=== PATIENT | female | born 1960 | race Two or more races ===

== ENCOUNTER 2016-06-28 19:27 | Emergency (ER) | payer SELFPAY ==
[~2016-06-28] VITALS: Ht 157.5 cm; Wt 68.0 kg
[~2016-06-28 19:27] MED LIST: ADDERAL20 MG ORAL; AMBIEN10 MG ORAL; ARMOUR THYROID30 MG ORAL; CYTOMEL5 MCG ORAL; LAMICTAL XR200 MG ORAL; LAMICTAL100 MG ORAL; LAMICTAL25 MG ORAL; NORCO 5-325 TA1 EACH PO; PERCOCET 5-3251 EACH ORAL; PERCOCET1 TAB ORAL; SYNTHROID125 MCG ORAL; SYNTHROID25 MCG ORAL; ZOLOFT100 MG ORAL
[2016-06-28 20:26] VITALS: BP 135/61
[2016-06-28] MEDS ORDERED: SYNTHROID175 MCG ORAL (21:35)
[2016-06-28] MEDS ORDERED: CYTOMEL5 MCG ORAL (21:35)
[2016-06-28 21:37] VITALS: BP 135/61
--- NOTE | 2016-06-29 13:06 | Diagnostic Imaging Report ---
Indications: hip pain Findings: Two views of the right hip were obtained. There is a right hip prosthesis demonstrated. There is no fracture or malalignment identified. There is a focus of soft tissue calcification that is fairly large lateral to the right hip. This may be desiccation of the bursa possibly hematoma that is calcified. Also note is made of the angle of the acetabular cup which appears highly abducted i.e. the abduction/inclination angle appears greater than normal. This is associated with a greater risk of dislocation and wearing of the cup. Impression: No acute fracture identified. Unusual soft tissue calcification of the structure lateral to the right hip which may be an enlarged or so with calcification or possibly hematoma. Right total hip arthroplasty with increased acetabular cup inclination/abduction. Patient is at increased risk for hip dislocation.
--- NOTE | 2016-06-30 11:37 | Emergency Room Report ---
History of Present Illness General Chief Complaint: Lower Back Pain or Injury Source: Patient Present Illness HPI The pt is a 56 yo F with a Hx of bilateral hip replacement presenting for R hip pain after falling today. The pt states that she fell down in the shower onto the R hip. The pain is described as a 6/10 dull ache and does not radiate from the R hip. Pain worse with touch. Pt denies numbness/tingling. The pt states that she usually ambulates in the house with a walker but now has to use a wheelchair due to the pain. The pt denies any other symptoms. Allergies: Coded Allergies: No Known Allergies (Unverified , 07/06/13) Patient History Past Medical History: see triage record Past Surgical History: other - bilat hip replacement Pertinent Family History: none Reviewed Nursing Documentation: PMH: Agreed, PSxH: Agreed Nursing Documentation-PMH Hx Cardiac Problems: No - THYROID Review of Systems All Other Systems: negative except mentioned in HPI Physical Exam Vital Signs Date Time Temp Pulse Resp B/P Pulse Ox O2 Delivery O2 Flow Rate FiO2 06/28/16 19:57 98.1 79 16 135/61 99 Room Air Sp02 EP Interpretation: reviewed, normal General Appearance: no apparent distress, alert, GCS 15, non-toxic Head: normocephalic, atraumatic Eyes: bilateral eye PERRL, bilateral eye normal inspection Musculoskeletal: no calf tenderness, decreased range of motion - bilat hip, tender - TTP over lateral R hip Neurologic: alert, oriented x3, responsive, motor strength/tone normal, sensory intact, speech normal Psychiatric: judgement/insight normal, memory normal, mood/affect normal, no suicidal/homicidal ideation Skin: normal color, no rash, warm/dry, well hydrated Lymphatic: no adenopathy Medical Decision Making PA Attestation Dr. Britt is my supervising physician. Patient management was discussed with my supervising physicianis my supervising physician. Patient management was discussed with my supervising physician Diagnostic Impression: Primary Impression: Medication refill Additional Impression: Contusion, hip ER Course The pt is a 56 yo F with a Hx of bilateral hip replacement presenting for R hip pain after falling today DDx: dislocation, fracture, contusion, strain PE: vitals WNL. NAD Pt is resting comfortably in wheelchair Limited AROM of R hip. No leg length discrepancy. Full AROM of knee and ankle SILT TTP over lateral R hip Pt declines pain medications in the ER Xray shows no fracture or dislocation. Hardware in place. There is STS noted. Pt will be DC'ed home with refill of medication for hypothyroidism and will FU with PMD. Pt is under pain management. ER precautions given. Other X-Ray Diagnostic Results Other X-Ray Diagnostic Results : X-Ray Ordered: R hip Date: Jun 30, 2016 EP Interpretation: Yes Findings: no fractures, no dislocation, other - + STS PA Scribe Text I'm acting as scribe for my supervising physician. My supervising physician's interpretation of the R hip xrays are there are no fractures, dislocations. There is soft tissue swelling noted. Last Vital Signs Date Time Temp Pulse Resp B/P Pulse Ox O2 Delivery O2 Flow Rate FiO2 06/28/16 21:37 98.1 16 135/61 99 Room Air 06/28/16 20:26 79 Status: improved Disposition: HOME, SELF-CARE Condition: Stable Scripts Liothyronine Sodium* (CYTOMEL*) 5 Mcg Tablet 5 MCG ORAL DAILY, #30 TAB Prov: PETER WALKER 06/28/16 Levothyroxine Sodium (SYNTHROID) 175 Mcg Tablet 175 MCG ORAL DAILY, #30 TAB Take in the morning on an empty stomach, at least 30 minutes before food. Prov: PETER WALKER 06/28/16 Referrals: NOT CHOSEN IPA/MD,REFERRING (PCP) Patient Instructions: Medicine Refill at the Emergency Department, Contusion Additional Instructions: I discussed my findings with the patient. All questions and concerns have been answered. Treatment and medication compliance have been addressed. I advised the patient that they need to follow up with PMD in 3-5 days. Return to ED if symptoms worsen, new symptoms arise, or if needed for any reason. Patient verbalized understanding of discharge instructions. PETER WALKER Jun 30, 2016 11:37
== END 2016-06-28 21:50 | disposition home or self-care (01) ==
LOC: EMR 21:46
DX: Z76.0 Encounter for issue of repeat prescription (principal); S70.01XA Contusion of right hip, initial encounter; Z96.643 Presence of artificial hip joint, bilateral; W18.2XXA Fall in (into) shower or empty bathtub, initial encounter; Y93.9 Activity, unspecified; Y92.9 Unspecified place or not applicable
CPT/HCPCS: 99284

== ENCOUNTER 2019-10-28 21:18 | Emergency (ER) | payer MEDICAID, OTHER ==
[~2019-10-28] VITALS: Ht 160 cm; Wt 79.4 kg
[~2019-10-28 21:18] MED LIST changes: +SYNTHROID175 MCG ORAL
--- NOTE | 2019-10-28 21:31 | NUR ---
ED Nurse Note: pt presents to ED c/o dysuria, burning, and urgency x 1 day. pt denies any blood but does report frequency, urgency and little ouput when she uses the restroom. pt denies any N/V at this time, no other complaints
[2019-10-28 21:33] VITALS: BP 133/81
--- NOTE | 2019-10-28 21:37 | NUR ---
ED Nurse Note: pt asked for straight cath, 2 cc of pink tinged urine obtained. ERMD aware. entire in and out specimen bag sent to lab for urine culture
--- NOTE | 2019-10-28 21:48 | Emergency Room Report ---
History of Present Illness General Chief Complaint: Female Urogenital Problems Source: Patient Present Illness HPI Patient with several days of dysuria. She complains of stinging and burning when she urinates. She can only pass small amounts of urine at this time. She denies fevers or chills. She denies back pain. She has had multiple urinary tract infections in the past. In addition she has had urinary incontinence. She feels there is an anatomic reason for her to develop urinary tract infections. She denies nausea, vomiting or diarrhea. She is complaining about a facial rash and is asking for Kenalog cream. No sore throat, chest pain, palpitations, abdominal pain, shortness of breath, joint pain, depression, anxiety, visual changes, dizziness, headache. 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: No Patient History Past Medical History: see triage record Social History: Denies: smoking, alcohol use, drug use Social History Narrative The patient is visiting from [place] Reviewed Nursing Documentation: PMH: Agreed; PSxH: Agreed Nursing Documentation-PMH Hx Cardiac Problems: No - THYROID Review of Systems All Other Systems: negative except mentioned in HPI Physical Exam Vital Signs Date Time Temp Pulse Resp B/P (MAP) Pulse Ox O2 Delivery O2 Flow Rate FiO2 10/28/19 21:24 97.5 70 16 133/81 (98) 97 Room Air Sp02 EP Interpretation: reviewed, normal General Appearance: well appearing, no apparent distress, GCS 15, non-toxic Head: normocephalic Eyes: bilateral eye normal inspection, bilateral eye PERRL, bilateral eye EOMI ENT: moist mucus membranes Neck: full range of motion, supple Respiratory: normal inspection Cardiovascular #1: regular rate, rhythm Cardiovascular #2: 2+ radial (R) Gastrointestinal: normal inspection Genitourinary: no CVA tenderness Musculoskeletal: gait/station normal Neurologic: alert, grossly normal Psychiatric: mood/affect normal Skin: warm/dry, other - Hyperpigmented rash perioral Medical Decision Making Diagnostic Impression: Primary Impression: UTI (urinary tract infection) Qualified Codes: N30.00 - Acute cystitis without hematuria Additional Impression: Facial rash ER Course Patient presents with dysuria without systemic signs or symptoms. Differential includes urinary tract infection, pyelonephritis amongst others. The lack of fever or back pain suggest more cystitis. She has had multiple urinary tract infections in the past. Urinalysis and urine culture are indicated. The patient will be given a dose of Pyridium as well as started on Macrobid. Urinalysis reveals too numerous to count red cells and too numerous to count white cells. There is no gross hematuria. Patient with improved symptoms with Pyridium. She initially could only produce a small amount of urine which was sent for culture. Advised the patient we would be contacting her if the bacteria which grow are resistant to Macrobid. In addition she was advised not to use Kenalog cream on her face. She said she would follow-up with her own doctor regarding this problem. Patient stable for outpatient observation and treatment. Laboratory Tests Test 10/28/19 22:20 Urine Color Yellow Urine Appearance Cloudy Urine pH 6 (4.5-8.0) Urine Specific [place] 1.025 (1.005-1.035) Urine Protein 3+ (NEGATIVE) H Urine Glucose (UA) Negative (NEGATIVE) Urine Ketones 1+ (NEGATIVE) H Urine Blood 5+ (NEGATIVE) H Urine Nitrite Positive (NEGATIVE) H Urine Bilirubin 1+ (NEGATIVE) H Urine Ictotest Positive (NEGATIVE) Urine Urobilinogen 1 MG/DL (0.0-1.0) H Urine Leukocyte Esterase 3+ (NEGATIVE) H Urine RBC Tntc /HPF (0 - 2) H Urine WBC Tntc /HPF (0 - 2) H Urine Squamous Epithelial Cells Moderate /LPF (NONE/OCC) H Urine Bacteria Moderate /HPF (NONE) H Last Vital Signs Date Time Temp Pulse Resp B/P (MAP) Pulse Ox O2 Delivery O2 Flow Rate FiO2 10/28/19 21:33 87 16 133/81 97 Room Air 10/28/19 21:24 97.5 Status: improved Disposition: HOME, SELF-CARE Condition: Improved Scripts Nitrofurantoin Monohyd/M-Cryst* (MACROBID 100 MG*) 100 Mg Capsule 100 MG ORAL EVERY 12 HOURS, #14 CAP Prov: Reece Ojeda MD 10/28/19 Phenazopyridine Hcl* (PYRIDIUM*) 200 Mg Tablet 200 MG ORAL THREE TIMES A DAY, #9 TAB 0 Refills Prov: Reece Ojeda MD 10/28/19 Reece Ojeda MD Oct 28, 2019 21:48
[2019-10-28] MEDS ORDERED: NITROFURANTOIN100 M2 ORAL (21:56)
[2019-10-28] MEDS ORDERED: PHENAZOPYRIDIN200 MG ORAL (21:56)
[2019-10-28] MEDS ORDERED: Acetaminophen 500mg (ES) tab ORAL ONE (22:00)
[2019-10-28] MEDS ORDERED: Phenazopyridine 200mg tab ORAL ONE (22:00)
[2019-10-28 22:27] VITALS: BP 133/81
--- NOTE | 2019-10-28 22:27 | NUR ---
ER DISCHARGE NOTE: Patient is cleared to be discharged per ERMD, pt is aox4, on room air, with stable vital signs. pt was given dc and prescription instructions, pt was able to verbalize understanding, pt id band removed without complications. pt is able to ambulate with steady gait. pt took all belongings.
[2019-10-28 22:39] LABS: APPEARANCE,URINE CLOUDY; BILIRUBIN, URINE 1+ (NEGATIVE); COLOR,URINE YELLOW; GLUCOSE, URINE (UA) NEGATIVE (NEGATIVE); KETONES,URINE 1+ (NEGATIVE); LEUKOCYTE ESTERASE ,URINE 3+ (NEGATIVE); NITRITE,URINE POSITIVE (NEGATIVE); PH,URINE 6 (4.5-8.0); PROTEIN,URINE 3+ (NEGATIVE); UROBILINOGEN,URINE 1 MG/DL (0.0-1.0)
[2019-11-01] MEDS ORDERED: CEPHALEXIN500 MG ORAL (09:51)
== END 2019-10-28 22:27 | disposition home or self-care (01) ==
LOC: EMR 21:44
DX: N30.00 Acute cystitis without hematuria (principal); R21 Rash and other nonspecific skin eruption
CPT/HCPCS: 81003; 87086; 87181; 99283

== ENCOUNTER 2019-11-15 16:52 | Emergency (ER) | payer MEDICAID ==
[~2019-11-15] VITALS: Ht 160 cm; Wt 83.9 kg
[~2019-11-15 16:52] MED LIST changes: +CEPHALEXIN500 MG ORAL; +NITROFURANTOIN100 M2 ORAL; +PHENAZOPYRIDIN200 MG ORAL
[2019-11-15 17:00] VITALS: BP 128/85
--- NOTE | 2019-11-15 17:10 | NUR ---
ED Nurse Note: Pt says that she has to leave soon. ED PA aware. Per PA, collect and urine and send to lab, but discharge patient immediately after with prescriptions.
--- NOTE | 2019-11-15 17:12 | Emergency Room Report ---
History of Present Illness General Chief Complaint: Female Urogenital Problems Source: Patient Present Illness HPI 59-year-old female with history of recurrent UTI who was just here a week ago for urinary tract infection here complaining of continuation of her UTI symptoms. Patient was first given Macrobid however after culture and sensitivity came back Keflex was called into the pharmacy. Patient also received phone call from the physician that the Keflex was called in however patient never picked it up as she forgot. After being triaged patient is in such a hurry as she needs to get home before sunset at the [facility] and wants to give urine and leave. After I talked to the patient patient tells me that she never picked up the Keflex from the pharmacy as she forgot and she feels stupid that she did not pick it up. I reprinted the prescription for her however urine was sent out and patient departed the ED and did not wait for results. Patient denies any fever and chills, diffuse abdominal pain, nausea vomiting. 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: No Patient History Past Medical History: see triage record Past Surgical History: none Pertinent Family History: none Now: No Immunizations: UTD Reviewed Nursing Documentation: PMH: Agreed; PSxH: Agreed Nursing Documentation-PMH Hx Cardiac Problems: No - THYROID Review of Systems All Other Systems: negative except mentioned in HPI Physical Exam Vital Signs Date Time Temp Pulse Resp B/P (MAP) Pulse Ox O2 Delivery O2 Flow Rate FiO2 11/15/19 17:00 98.2 80 18 125/83 (97) 95 Room Air Sp02 EP Interpretation: reviewed, normal General Appearance: no apparent distress, alert, GCS 15, non-toxic Head: normocephalic, atraumatic Eyes: bilateral eye normal inspection, bilateral eye PERRL ENT: hearing grossly normal, normal pharynx, no angioedema, normal voice Neck: full range of motion, supple/symm/no masses Respiratory: chest non-tender, lungs clear, normal breath sounds, no rhonchi, speaking full sentences Cardiovascular #1: regular rate, rhythm, no edema, no murmur Gastrointestinal: normal bowel sounds, non tender, soft, non-distended, no guarding, no rebound Rectal: deferred Genitourinary: no CVA tenderness Musculoskeletal: back normal Neurologic: alert, motor strength/tone normal, oriented x3, sensory intact, responsive, speech normal Psychiatric: judgement/insight normal, memory normal, mood/affect normal, no suicidal/homicidal ideation Skin: no rash Lymphatic: no adenopathy Medical Decision Making PA Attestation All diagnosis and treatment plans were discussed and reviewed by my supervising physician Dr. Marquez Diagnostic Impression: Primary Impression: UTI (urinary tract infection) ER Course 59-year-old female with history of recurrent UTI who was just here a week ago for urinary tract infection here complaining of continuation of her UTI symptoms. Patient was first given Macrobid however after culture and sensitivity came back Keflex was called into the pharmacy. Patient also received phone call from the physician that the Keflex was called in however patient never picked it up as she forgot. After being triaged patient is in such a hurry as she needs to get home before sunset at the [facility] and wants to give urine and leave. After I talked to the patient patient tells me that she never picked up the Keflex from the pharmacy as she forgot and she feels stupid that she did not pick it up. I reprinted the prescription for her however urine was sent out and patient departed the ED and did not wait for results. Patient denies any fever and chills, diffuse abdominal pain, nausea vomiting. Ddx considered but are not limited to: UTI, pyelonephritis, urinary incontinence , prolapsed bladder Vital signs: are WNL, pt. is afebrile H&PE are most consistent with: UTI ORDERS: UA, urine cx, Keflex, pyridium ED INTERVENTIONS: None required at this time. DISCHARGE: At this time pt. is stable for d/c to home. Will provide printed patient care instructions, and any necessary prescriptions. Care plan and follow up instructions have been discussed with the patient prior to discharge. Patient take medication as directed, follow primary care provider, increase oral hydration, if worsening symptoms return to emergency room Last Vital Signs Date Time Temp Pulse Resp B/P (MAP) Pulse Ox O2 Delivery O2 Flow Rate FiO2 11/15/19 17:00 98.2 80 18 125/83 (97) 95 Room Air Disposition: HOME, SELF-CARE Condition: Stable Scripts Phenazopyridine Hcl* (PYRIDIUM*) 200 Mg Tablet 200 MG ORAL THREE TIMES A DAY for 2 Days, #6 TAB 0 Refills Prov: Deshawn Salazar 11/15/19 Cephalexin* (KEFLEX*) 500 Mg Capsule 500 MG ORAL EVERY 12 HOURS for 7 Days, #14 CAP 0 Refills Prov: Deshawn Salazar 11/15/19 Referrals: NOT CHOSEN IPA/,REFERRING (PCP) Patient Instructions: Urinary Tract Infection Additional Instructions: Take medication as directed, follow-up with your primary care provider, increase oral hydration, if worsening symptoms return to the emergency room Deshawn Salazar Nov 15, 2019 17:11
[2019-11-15] MEDS ORDERED: PHENAZOPYRIDIN200 MG ORAL (17:13)
[2019-11-15] MEDS ORDERED: CEPHALEXIN500 MG ORAL (17:13)
--- NOTE | 2019-11-15 17:18 | NUR ---
ED Nurse Note: Pt walked in from home c/o burning with urination. Pt was seen @ [facility] [place] for same problem, treated for UTI, but symptoms have not improved. Respirations even and unlabored on room air. Vitals stable as documented. A+0x4 Addendum: 11/15/19 at 1719 by BDUTTON CORRECT TIME: 1700
[2019-11-15 17:20] VITALS: BP 133/79
--- NOTE | 2019-11-15 17:20 | NUR ---
ER DISCHARGE NOTE: Patient is cleared to be discharged per ERMD, pt is aox4, on room air, with stable vital signs. pt was given dc and prescription instructions, pt was able to verbalize understanding, pt id band removed. pt is able to ambulate with steady gait. pt took all belongings.
[2019-11-15 17:35] LABS: APPEARANCE,URINE CLOUDY; BILIRUBIN, URINE NEGATIVE (NEGATIVE); COLOR,URINE YELLOW; GLUCOSE, URINE (UA) NEGATIVE (NEGATIVE); KETONES,URINE 1+ (NEGATIVE); LEUKOCYTE ESTERASE ,URINE 3+ (NEGATIVE); NITRITE,URINE POSITIVE (NEGATIVE); PH,URINE 6 (4.5-8.0); PROTEIN,URINE 3+ (NEGATIVE); UROBILINOGEN,URINE 1 MG/DL (0.0-1.0)
== END 2019-11-15 17:20 | disposition home or self-care (01) ==
LOC: EMR 17:08
DX: N39.0 Urinary tract infection, site not specified (principal)
CPT/HCPCS: 81003; 87086; 87181; Z7502; 99283

== ENCOUNTER 2019-12-09 19:20 | Emergency (ER) | payer MEDICAID ==
[~2019-12-09] VITALS: Ht 160 cm; Wt 70.3 kg
[2019-12-09 19:35] VITALS: BP 135/83
--- NOTE | 2019-12-09 20:02 | Emergency Room Report ---
History of Present Illness General Chief Complaint: Skin Rash/Abscess Source: Patient Present Illness HPI The patient presents complaining of facial itching. She claims she has been using hydrocortisone 2.5%. This helps a little bit but itching is worse at this time. She does not take any oral medications for this problem. She states that the facial rash is due to a reaction she has from a total hip replacement. She claims that there is metal deposit in the face. She has some lesions on her chin that occasionally appear. This is not worse than usual. She denies fevers or chills. She denies any pain in her face. There is no swelling. The patient has been treated for recurrent urinary tract infections. The patient denies any angioedema, shortness of breath, wheezing, other skin rashes, nausea, vomiting or diarrhea. She denies pain at this time. 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: No Patient History Past Medical History: see triage record Past Surgical History: other - Hip surgery Social History: Denies: smoking, alcohol use, drug use Social History Narrative from [place] Reviewed Nursing Documentation: PMH: Agreed; PSxH: Agreed Nursing Documentation-PMH Hx Cardiac Problems: No - THYROID Review of Systems All Other Systems: negative except mentioned in HPI Physical Exam Vital Signs Date Time Temp Pulse Resp B/P (MAP) Pulse Ox O2 Delivery O2 Flow Rate FiO2 12/09/19 19:32 97.9 75 16 135/83 (100) 98 Room Air Sp02 EP Interpretation: reviewed, normal General Appearance: well appearing, no apparent distress, GCS 15 Head: normocephalic Eyes: left eye other - Hyperpigmented infraorbital infraorbital lesions; bilateral eye normal inspection, bilateral eye PERRL, bilateral eye EOMI ENT: normal pharynx, no angioedema, moist mucus membranes Neck: supple Respiratory: normal inspection Cardiovascular #1: regular rate, rhythm Cardiovascular #2: 2+ radial (R) Gastrointestinal: normal inspection Musculoskeletal: gait/station normal Neurologic: alert, grossly normal Psychiatric: mood/affect normal Skin: normal color, warm/dry, other - Slight macular papular appearance of face Medical Decision Making Diagnostic Impression: Primary Impression: Allergic reaction Qualified Codes: T78.40XD - Allergy, unspecified, subsequent encounter ER Course Patient presents with facial itching. Differential includes allergic reaction reaction amongst others. The patient is insistent that this is a reaction to her total hip metal. She is requesting a refill of the hydrocortisone cream. The patient is given Benadryl here. In addition she is given prednisone. This was discussed with the patient. She has said understands the rationale. No evidence of angioedema or anaphylaxis. Patient was advised to follow-up with her location director. Patient stable for outpatient observation and treatment. Last Vital Signs Date Time Temp Pulse Resp B/P (MAP) Pulse Ox O2 Delivery O2 Flow Rate FiO2 12/09/19 20:19 98.2 87 16 122/86 98 Room Air Status: improved Disposition: HOME, SELF-CARE Condition: Improved Scripts Diphenhydramine Hcl* (BENADRYL*) 25 Mg Capsule 25 MG ORAL Q6H PRN for Itching, #20 CAP Prov: Reece Ojeda MD 12/09/19 Prednisone* (PREDNISONE*) 20 Mg Tablet 20 MG ORAL DAILY, #5 TAB Prov: Reece Ojeda MD 12/09/19 Hydrocortisone Acetate (Hydrocortisone Acetate 2.5% Cream) 453.6 Gm Cream..g. 1 APPLIC TP BID, #30 GM 1 Refill Prov: Reece Ojeda MD 12/09/19 Reece Ojeda MD Dec 09, 2019 20:02
[2019-12-09] MEDS ORDERED: HYDROCORTISO453.6 G1 TP (20:08)
[2019-12-09] MEDS ORDERED: BENADRYL25 MG ORAL (20:08)
[2019-12-09] MEDS ORDERED: PREDNISONE20 MG ORAL (20:08)
[2019-12-09 20:19] VITALS: BP 122/86
== END 2019-12-09 20:20 | disposition home or self-care (01) ==
LOC: EMR 20:20
DX: T78.40XD Allergy, unspecified, subsequent encounter (principal); X58.XXXD Exposure to other specified factors, subsequent encounter; Z96.649 Presence of unspecified artificial hip joint; Z87.440 Personal history of urinary (tract) infections
CPT/HCPCS: J7512; Z7502; 99282

== ENCOUNTER 2020-01-19 11:22 | Emergency (ER) | payer MEDICAID ==
[~2020-01-19] VITALS: Ht 177.8 cm; Wt 79.4 kg
[~2020-01-19 11:22] MED LIST changes: +BENADRYL25 MG ORAL; +HYDROCORTISO453.6 G1 TP; +PREDNISONE20 MG ORAL
--- NOTE | 2020-01-19 11:40 | NUR ---
ED Nurse Note: Patient from home and walked in due to blurring of her vision, pain and with redness x 3 days that she noticed after she ate fish. Pt also c/o whitish discoloration under her tongue. patient is AAO x4, ambulatory with non labored breathing.
[2020-01-19] MEDS ORDERED: Tetracaine 0.5% Opth 4ml Soln LEFT EYE ONE (11:45)
[2020-01-19] MEDS ORDERED: Fluorescein Strips LEFT EYE ONE (11:45)
--- NOTE | 2020-01-19 12:02 | Emergency Room Report ---
History of Present Illness General Chief Complaint: General Complaint Source: Patient Present Illness HPI Disclaimer: Please note that this report is being documented using [employer] technology. This can lead to erroneous entry secondary to incorrect interpretation by the dictating instrument. HPI: 59-year-old female presents for evaluation of left eye irritation and tongue swelling. Patient states she ate a fish dinner 2 nights ago after which she developed a swelling and discoloration under the tongue. Denies pain or bleeding or purulence. States it looks like dry skin. Does not believe it was there before she ate the fish. Also complaining of right-sided facial irritation itchiness and blurred vision. Reports photosensitivity. Denies pain with extraocular movements. Denies foreign body sensation or eye injury. Denies headache or fever. PMH: Reviewed PSH: Reviewed Allergies: Reviewed Social Hx: Reviewed Allergies: Coded Allergies: No Known Allergies (Unverified , 07/06/13) COVID-19 Screening Contact w/high risk pt: No Recent Travel to affected area: No Experienced COVID-19 symptoms?: No COVID-19 Testing performed REHABILITATION ENGINEER: No Nursing Documentation-PMH Past Medical History: No History, Except For Review of Systems All Other Systems: negative except mentioned in HPI Physical Exam Vital Signs Date Time Temp Pulse Resp B/P (MAP) Pulse Ox O2 Delivery O2 Flow Rate FiO2 01/19/20 11:30 98.1 78 19 95 Room Air General: Awake and alert, no acute distress HEENT: NC/AT. EOMI. PERRLA. No ocular entrapment. No proptosis, lid edema, no purulent drainage. Eyes are injected bilaterally though left greater than right. There is periorbital erythema and hyperpigmentation, left greater than right. Visual acuity: 20/50 OD, 20/70 OS, 20/50 OU. Fluorescein stain: No corneal abrasions, no foreign bodies, negative Jael, negative dendrites, no ulcerations, no significant findings. There is a white raised appearing lesion at the base of the tongue that is nontender, no bleeding, does not scrape away Resp: Normal work of breathing Skin: Intact. No abrasions, laceration or rash over the exposed skin MSK: Normal tone and bulk. Moving all extremities. No obvious deformity. Neuro: Awake and alert. Mentating appropriately Medical Decision Making Diagnostic Impression: Primary Impression: Tongue lesion Additional Impression: Facial cellulitis ER Course This is a 59-year-old female presenting to the emergency department for evaluation of left eye irritation and tongue lesion. Patient is convinced this is a reaction to salmon she ate several days ago. There is no evidence of corneal abrasion, periorbital cellulitis though does appear that she has some dermatitis and possible superficial cellulitis of the left side of the face presumably from increased scratching to which she admits. Review of documentation provided by the patient from her food service order clerk her visual acuity is unchanged as is the hyperpigmentation and chronic appearing skin lesions. Will cover for superficial cellulitis with oral antibiotics. Patient started on artificial tears for eye irritation. Regarding the tongue lesion concern for possible fungating mass, infection, cancerous lesion. I believe this require biopsy next discussed at length with patient need to follow-up with an ENT immediately. The patient states she was not worried about this lesion as it started after she ate salmon and believes it will go away however I strongly encouraged her to follow-up with a specialist as soon as possible for further testing. She states she will follow-up with her food service order clerk and obtain ENT consult. We discussed reasons to return to the emergency department. She understands and agrees with this treatment plan. Last Vital Signs Date Time Temp Pulse Resp B/P (MAP) Pulse Ox O2 Delivery O2 Flow Rate FiO2 01/19/20 11:30 98.1 78 19 95 Room Air Disposition: HOME, SELF-CARE Condition: Stable Scripts Dextran 70/Hypromellose (ARTIFICIAL TEARS EYE DROPS*) 15 Ml Drops 1 DROP BOTH EYES Q3HR, #15 ML 0 Refills Prov: Mynor Mckeon MD 01/19/20 Cephalexin* (KEFLEX*) 500 Mg Capsule 500 MG ORAL EVERY 12 HOURS, #14 CAP 0 Refills Prov: Mynor Mckeon MD 01/19/20 Mynor Mckeon MD Jan 19, 2020 12:02
[2020-01-19] MEDS ORDERED: CEPHALEXIN500 MG ORAL (12:28)
[2020-01-19] MEDS ORDERED: ARTIFICIAL TEAR15 ML BOTH EYES (12:28)
[2020-01-19 12:42] VITALS: BP 145/80
== END 2020-01-19 12:42 | disposition home or self-care (01) ==
LOC: EMR 12:04
DX: K14.8 Other diseases of tongue (principal); L03.211 Cellulitis of face
CPT/HCPCS: 99283